=== PATIENT | female | born 1950 | race African-American/Black ===

== ENCOUNTER 2021-01-09 06:51 | Day surgery (SDC) | payer OTHER ==
[~2021-01-09] VITALS: Ht 157.5 cm; Wt 75.7 kg
[~2021-01-09 06:51] MED LIST: ALBUAER3 IN; ALLO300T2 PO; CYAN1TAB11 PO; FERR324T4 PO; FLUT110A INH; LOSA100T33 PO; LOVA40TA72 PO; METF-370 PO; WARF5TAB71 PO
[2021-01-09] MEDS ORDERED: LIDOCAINE 2%HCL (LOCAL ANESTH.) INJ 20ML MDV ONE (07:11)
[2021-01-09] MEDS ORDERED: ANGIOMAX 250 MG VIAL IV ONE ×2 (07:42→08:36)
[2021-01-09] MEDS ORDERED: methylPREDNISolone SOD SUCC 125 MG/2 ML VL ONE (07:42)
[2021-01-09] MEDS ORDERED: fentaNYL CITRATE 100 MCG/2 ML VL ONE (07:43)
[2021-01-09] MEDS ORDERED: diphenhdrAMINE HCL 50 MG/1 ML VL ONE (07:43)
[2021-01-09] MEDS ORDERED: MIDAZOLAM HCL 1MG/1ML-2 ML VIAL ONE (07:43)
[2021-01-09] MEDS ORDERED: VERAPAMIL 2.5MG/ML INJ 2ML VIAL IV ONE (07:43)
[2021-01-09] MEDS ORDERED: HEPARIN SODIUM (PORCINE) 5000 UNITS/ML 1ML VIAL ONE (07:43)
[2021-01-09] MEDS ORDERED: FAMOTIDINE (10MG/ML) 2ML VL IV ONE ×2 (07:44→07:49)
[2021-01-09] MEDS ORDERED: SODIUM CHL 0.9% 0 ML ONE (07:44)
[2021-01-09] MEDS ORDERED: SODIUM CHL 0.9% 50 ML ONE (08:36)
[2021-01-09] MEDS ORDERED: ACETAMINOPHEN 500 MG TAB PO PRN (09:15)
[2021-01-09] MEDS ORDERED: ONDANSETRON HCL 4 MG/2 ML VIAL IV PRN (09:15)
== END 2021-01-09 11:41 | disposition home or self-care (01) ==
LOC: CATH 06:51
PROVIDERS: ATTEND Internal Medicine Cardiovascular Disease
DX: R94.39 Abnormal result of other cardiovascular function study (principal); I25.10 Atherosclerotic heart disease of native coronary artery without angina pectoris; E78.5 Hyperlipidemia, unspecified; I10 Essential (primary) hypertension; E66.9 Obesity, unspecified; Z20.822 Contact with and (suspected) exposure to COVID-19; Z98.890 Other specified postprocedural states; Z79.899 Other long term (current) drug therapy; Z88.0 Allergy status to penicillin; Z91.041 Radiographic dye allergy status; Z88.5 Allergy status to narcotic agent; Z68.30 Body mass index [BMI] 30.0-30.9, adult
CPT/HCPCS: 92978; 93454; C1760; C1769; C1887; C1894; J0583; J1200; J1644; J2250; J2930; J3010; J3490; J7030; U0003; 99152; 99153